=== PATIENT | male | born 1985 | race Caucasian/White ===

== ENCOUNTER 2018-01-27 18:05 | Emergency (ER) | payer OTHER ==
[~2018-01-27] VITALS: Ht 170.2 cm; Wt 64.9 kg
[2018-01-27 18:20] VITALS: Ht 170.2 cm; Wt 64.9 kg
[2018-01-27 19:15] VITALS: BP 135/71
== END 2018-01-27 19:15 | disposition home or self-care (01) ==
LOC: ED 18:05
DX: H60.92 Unspecified otitis externa, left ear (principal)
CPT/HCPCS: J1885